=== PATIENT | female | born 1950 | race Caucasian/White ===

== ENCOUNTER 2021-11-10 03:06 | Inpatient (IN) | payer OTHER, MEDICAID ==
[~2021-11-10] VITALS: Ht 154.9 cm; Wt 60.3 kg
[2021-11-10 04:36] LABS: BG BASE EXCESS 1.9 mmol/L (-2.0-2.0); BG CARBOXYHEMOGLOBIN 0.3 % (0.5-1.5); BG DEOXYHEMOGLOBIN 3.1 % (0.0-5.0); BG HCO3 ACT 26.1 mmol/L (22.0-26.0); BG METHEMOGLOBIN 0.4 % (0.0-1.5); BG OXYGEN SATURATION 96.9 % (92.0-98.5); BG OXYHEMOGLOBIN 96.2 % (94.0-97.0); BG PCO2 39.6 mmHg (35.0-45.0); BG PH 7.437 (7.350-7.450); BG PO2 93.5 mmHg (75.0-100.0); BG SAMPLE SITE RIGHT RADIAL; BG TOTAL HEMOGLOBIN 11.7 g/dL (12.0-18.0); BG VENT MODE ROOM AIR
[2021-11-10 04:37] LABS: BASOPHILS % 0.6 % (0.0-2.0); EOSINOPHILS % 1.4 % (0.0-5.0); HEMOGLOBIN. 10.6 g/dL (12.0-16.0); LYMPHOCYTES % 30.8 % (20.0-50.0); MEAN CORPUSCULAR HEMOGLOBIN 30.1 pg (28.0-32.0); MEAN CORPUSCULAR VOLUME 90.4 fL (81.0-99.0); MEAN PLATELET VOLUME 6.9 fl (7.4-10.4); MONOCYTES % 9.4 % (2.0-8.0); NEUTROPHILS % 57.8 % (40.0-76.0); PLATELET 362 x1000/uL (130-400); RED BLOOD CELL COUNT 3.54 mill/uL (4.2-5.4); RED CELL DISTRIBUTION WIDTH 12.9 % (11.6-14.6)
[2021-11-10 04:42] LABS: CHLORIDE 105 mEq/L (98-107)
[2021-11-10 04:47] LABS: ETHANOL BLOOD < 10 mg/dL
[2021-11-10] MEDS ORDERED: METHYLPREDNISOLONE SOD SUCC 125 MG/2 ML VIAL IV STA (05:37)
[2021-11-10] MEDS ORDERED: ALBUTEROL (0.083%) 2.5MG/3ML NEB HHN STA (05:37)
[2021-11-10] MEDS ORDERED: IPRATROPIUM BROMIDE (0.02%) 0.5MG/2.5ML NEB HHN STA (05:37)
[2021-11-10 07:40] LABS: CLARITY URINE CLEAR (CLEAR); COLOR URINE YELLOW (YELLOW); KETONES URINE NEGATIVE (NEGATIVE); LEUKOCYTE ESTERASE URINE TRACE (NEGATIVE); NITRITE URINE NEGATIVE (NEGATIVE); OCCULT BLOOD URINE NEGATIVE (NEGATIVE); PH URINE 6.5 (4.5-8.0); PROTEIN URINE NEGATIVE (NEGATIVE); SPECIFIC GRAVITY URINE 1.004 (1.005-1.030); UROBILINOGEN URINE 0.2 E.U./dL (0.2-1.0)
[2021-11-10] MEDS ORDERED: IPRATROPIUM/ALBUTEROL 0.5-3(2.5)MG/3ML NEB NEB PRN (10:45)
[2021-11-10] MEDS ORDERED: CEFTRIAXONE 1 G PREMIX 50 ML IV SCH (10:45)
[2021-11-10] MEDS ORDERED: CLONIDINE 0.1MG TABLET PO PRN (10:45)
[2021-11-10] MEDS ORDERED: ACETAMINOPHEN 650MG SUPP PR PRN (10:45)
[2021-11-10] MEDS ORDERED: DIPHENHYDRAMINE 50MG/ML VIAL IV PRN (10:45)
[2021-11-10] MEDS ORDERED: MAGNESIUM/ALUMINUM HYDROXIDE/SIMETHICONE 30ML UDC PO PRN (10:45)
[2021-11-10] MEDS ORDERED: GUAIFENESIN 200MG/10ML SUGAR FREE UDC PO PRN (10:45)
[2021-11-10] MEDS ORDERED: ONDANSETRON HCL 4MG/2ML INJ IV PRN (10:45)
[2021-11-10] MEDS ORDERED: NA PHOS,M-B/NA PHOS,DI-BA ENEMA 118ML PR PRN (10:45)
[2021-11-10] MEDS ORDERED: CEFTRIAXONE 1,000 MG in DEXTROSE 5% WATER 50 ML IV SCH (12:00)
[2021-11-10] MEDS: IPRATROPIUM/ALBUTEROL 0.5-3(2.5)MG/3ML NEB NEB SCH ×2 (12:28→20:56)
[2021-11-10 12:58] LABS: *AMPHETAMINES SCREEN URINE NEGATIVE (NEGATIVE); *BARBITURATES SCREEN URINE NEGATIVE (NEGATIVE); *BENZODIAZEPINES SCREEN URINE NEGATIVE (NEGATIVE); *COCAINE SCREEN URINE NEGATIVE (NEGATIVE); CANNABINOID URINE SCREEN NEGATIVE (NEGATIVE); METHADONE URINE SCREEN NEGATIVE (NEGATIVE)
[2021-11-10 12:59] LABS: OPIATES URINE SCREEN NEGATIVE (NEGATIVE); PHENCYCLIDINE URINE SCREEN NEGATIVE (NEGATIVE)
[2021-11-10] MEDS ORDERED: AZITHROMYCIN 500 MG in DEXT 5% WATER 250 ML IV SCH (13:00)
[2021-11-10] MEDS ORDERED: NALOXONE HCL 0.4MG/ML VIAL IV PRN (13:15)
[2021-11-10 15:30] VITALS: BP 133/71
[2021-11-10] MEDS: METHYLPREDNISOLONE SOD SUCC 40 MG/ML VIAL IV SCH ×2 (15:45→21:49)
[2021-11-10] MEDS: ENOXAPARIN 40MG/0.4ML SYR SUBCUT SCH (15:46)
[2021-11-10 18:07] LABS: CREATINE KINASE 670 IU/L (26-192)
[2021-11-10 18:09] LABS: CREATINE KINASE MB FRACTION 12.4 ng/mL (0.5-3.6)
[2021-11-10 20:00] VITALS: BP 121/67
[2021-11-10] MEDS: BUDESONIDE 0.5MG/2ML NEB HHN SCH (20:58)
[2021-11-10] MEDS: FAMOTIDINE 20MG TABLET PO SCH (21:49)
[2021-11-11] VITALS: BP 115/55
[2021-11-11] MEDS: IPRATROPIUM/ALBUTEROL 0.5-3(2.5)MG/3ML NEB NEB SCH ×5 (02:15→21:21)
[2021-11-11 04:00] VITALS: BP 111/42
[2021-11-11] MEDS: METHYLPREDNISOLONE SOD SUCC 40 MG/ML VIAL IV SCH ×3 (05:58→21:20)
[2021-11-11 07:33] LABS: HEMATOCRIT. 32.4 % (36.0-48.0); HEMOGLOBIN. 10.9 g/dL (12.0-16.0); MEAN CORPUSCULAR HEMOGLOBIN 30.4 pg (28.0-32.0); MEAN CORPUSCULAR VOLUME 90.3 fL (81.0-99.0); MEAN PLATELET VOLUME 7.5 fl (7.4-10.4); MONOCYTES % 3.3 % (2.0-8.0); NEUTROPHILS % 86.7 % (40.0-76.0); PLATELET 371 x1000/uL (130-400); RED BLOOD CELL COUNT 3.58 mill/uL (4.2-5.4); RED CELL DISTRIBUTION WIDTH 13.1 % (11.6-14.6)
[2021-11-11 08:00] VITALS: BP 108/59
[2021-11-11 08:10] LABS: CHLORIDE 103 mEq/L (98-107)
[2021-11-11 08:24] LABS: CREATINE KINASE 488 IU/L (26-192)
[2021-11-11 08:28] LABS: CREATINE KINASE MB FRACTION 7.4 ng/mL (0.5-3.6)
[2021-11-11] MEDS: ENOXAPARIN 40MG/0.4ML SYR SUBCUT SCH (08:37)
[2021-11-11] MEDS ORDERED: PNEUMOCOCCAL 23-VAL P-SAC VAC 0.5 ML IM ONE (09:00)
[2021-11-11] MEDS ORDERED: INFLUENZA VACCINE 05/PF 0.5 ML SYRINGE IM ONE (09:00)
[2021-11-11] MEDS: BUDESONIDE 0.5MG/2ML NEB HHN SCH ×2 (09:50→21:21)
[2021-11-11] MEDS: CEFTRIAXONE 1,000 MG in DEXTROSE 5% WATER 50 ML IV SCH (11:22)
[2021-11-11 12:00] VITALS: BP 119/54
[2021-11-11] MEDS: AZITHROMYCIN 500 MG in DEXT 5% WATER 250 ML IV SCH (13:07)
[2021-11-11] MEDS: LORAZEPAM 0.5MG TABLET PO PRN ×2 (16:10→21:20)
[2021-11-11 20:00] VITALS: BP 111/60
[2021-11-11] MEDS: FAMOTIDINE 20MG TABLET PO SCH (21:20)
[2021-11-11 23:36] VITALS: BP 100/51
[2021-11-12] MEDS: IPRATROPIUM/ALBUTEROL 0.5-3(2.5)MG/3ML NEB NEB SCH ×3 (01:10→20:57)
[2021-11-12 04:00] VITALS: BP 111/58
[2021-11-12] MEDS: METHYLPREDNISOLONE SOD SUCC 40 MG/ML VIAL IV SCH ×2 (05:24→14:31)
[2021-11-12] MEDS: BUDESONIDE 0.5MG/2ML NEB HHN SCH ×2 (07:34→20:57)
[2021-11-12 08:00] VITALS: BP 129/56
[2021-11-12] MEDS: ENOXAPARIN 40MG/0.4ML SYR SUBCUT SCH (09:02)
[2021-11-12] MEDS: CEFTRIAXONE 1,000 MG in DEXTROSE 5% WATER 50 ML IV SCH (10:49)
[2021-11-12 12:00] VITALS: BP 140/65
[2021-11-12] MEDS ORDERED: DEXTROSE 50% WATER 50ML SYRINGE IV PRN (12:00)
[2021-11-12] MEDS: BLOOD SUGAR DIAGNOSTIC STRIP TEST SCH ×3 (12:18→21:28)
[2021-11-12] MEDS: AZITHROMYCIN 500 MG in DEXT 5% WATER 250 ML IV SCH (12:48)
[2021-11-12] MEDS ORDERED: INSULIN LISPRO 100 UNITS/ML SUBCUT SCH ×2 (12:50→14:45)
[2021-11-12 13:09] LABS: HEMATOCRIT. 34.2 % (36.0-48.0); MEAN CORPUSCULAR HEMOGLOBIN 30.6 pg (28.0-32.0); MEAN CORPUSCULAR VOLUME 94.7 fL (81.0-99.0); MEAN PLATELET VOLUME 7.8 fl (7.4-10.4); PLATELET 400 x1000/uL (130-400); RED BLOOD CELL COUNT 3.61 mill/uL (4.2-5.4); RED CELL DISTRIBUTION WIDTH 13.8 % (11.6-14.6)
[2021-11-12] MEDS ORDERED: INSULIN GLARGINE UD 100 UNITS/ML SYR SUBCUT SCH ×2 (14:45→16:00)
[2021-11-12] MEDS: HYDROCODONE/ACETAMINOPHEN 5/325MG TABLET PO PRN (15:49)
[2021-11-12 16:00] VITALS: BP 146/69
[2021-11-12] MEDS: INSULIN LISPRO 100 UNITS/ML SUBCUT SCH ×2 (18:08→21:30)
[2021-11-12 20:00] VITALS: BP 112/53
[2021-11-12 20:02] LABS: PLATELET ESTIMATE NORMAL
[2021-11-12] MEDS: FAMOTIDINE 20MG TABLET PO SCH (21:28)
[2021-11-12] MEDS: INSULIN GLARGINE UD 100 UNITS/ML SYR SUBCUT SCH (21:46)
[2021-11-12 23:55] VITALS: BP 128/60
[2021-11-13] MEDS ORDERED: METHYLPREDNISOLONE SOD SUCC 40 MG/ML VIAL IV SCH (02:00)
[2021-11-13] MEDS: IPRATROPIUM/ALBUTEROL 0.5-3(2.5)MG/3ML NEB NEB SCH ×4 (02:13→21:45)
[2021-11-13 04:00] VITALS: BP 121/58
[2021-11-13] MEDS: BLOOD SUGAR DIAGNOSTIC STRIP TEST SCH ×4 (06:30→21:14)
[2021-11-13] MEDS: INSULIN LISPRO 100 UNITS/ML SUBCUT SCH ×4 (06:30→21:26)
[2021-11-13 08:00] VITALS: BP 141/65
[2021-11-13] MEDS: ENOXAPARIN 40MG/0.4ML SYR SUBCUT SCH (09:00)
[2021-11-13] MEDS: BUDESONIDE 0.5MG/2ML NEB HHN SCH (09:39)
[2021-11-13] MEDS: INSULIN GLARGINE UD 100 UNITS/ML SYR SUBCUT SCH ×4 (10:00→22:03)
[2021-11-13] MEDS: CEFTRIAXONE 1,000 MG in DEXTROSE 5% WATER 50 ML IV SCH (11:09)
[2021-11-13] MEDS: HYDROCODONE/ACETAMINOPHEN 5/325MG TABLET PO PRN (11:37)
[2021-11-13 12:00] VITALS: BP 156/84
[2021-11-13] MEDS: AZITHROMYCIN 500 MG in DEXT 5% WATER 250 ML IV SCH (12:59)
[2021-11-13] MEDS ORDERED: INSULIN LISPRO 100 UNITS/ML SUBCUT SCH (13:00)
[2021-11-13] MEDS: GABAPENTIN 100MG CAPSULE PO SCH ×2 (15:00→21:24)
[2021-11-13 16:00] VITALS: BP 108/72
[2021-11-13] MEDS: ACETAMINOPHEN 325MG TABLET PO PRN ×2 (16:18→21:25)
[2021-11-13 20:00] VITALS: BP 130/74
[2021-11-13] MEDS: FAMOTIDINE 20MG TABLET PO SCH (21:24)
[2021-11-13] MEDS: LORAZEPAM 0.5MG TABLET PO PRN (22:34)
[2021-11-13 23:07] LABS: BASOPHILS % 0.4 % (0.0-2.0); EOSINOPHILS % 0.1 % (0.0-5.0); HEMOGLOBIN. 11.9 g/dL (12.0-16.0); LYMPHOCYTES % 21.6 % (20.0-50.0); MEAN CORPUSCULAR HEMOGLOBIN 30.7 pg (28.0-32.0); MEAN CORPUSCULAR VOLUME 90.2 fL (81.0-99.0); MEAN PLATELET VOLUME 7.2 fl (7.4-10.4); MONOCYTES % 7.5 % (2.0-8.0); NEUTROPHILS % 70.4 % (40.0-76.0); PLATELET 409 x1000/uL (130-400); RED BLOOD CELL COUNT 3.88 mill/uL (4.2-5.4); RED CELL DISTRIBUTION WIDTH 13.3 % (11.6-14.6)
[2021-11-14] VITALS: BP 154/67
[2021-11-14 04:00] VITALS: BP 144/71
[2021-11-14] MEDS: BLOOD SUGAR DIAGNOSTIC STRIP TEST SCH ×4 (06:34→20:43)
[2021-11-14] MEDS: INSULIN LISPRO 100 UNITS/ML SUBCUT SCH ×4 (06:53→21:42)
[2021-11-14] MEDS: GABAPENTIN 100MG CAPSULE PO SCH ×3 (06:53→21:34)
[2021-11-14 08:00] VITALS: BP 134/58
[2021-11-14] MEDS: IPRATROPIUM/ALBUTEROL 0.5-3(2.5)MG/3ML NEB NEB SCH ×4 (09:27→20:54)
[2021-11-14] MEDS: METHYLPREDNISOLONE SOD SUCC 40 MG/ML VIAL IV SCH (09:50)
[2021-11-14] MEDS: ENOXAPARIN 40MG/0.4ML SYR SUBCUT SCH (09:51)
[2021-11-14] MEDS: INSULIN GLARGINE UD 100 UNITS/ML SYR SUBCUT SCH ×2 (09:59→23:08)
[2021-11-14] MEDS: CEFTRIAXONE 1,000 MG in DEXTROSE 5% WATER 50 ML IV SCH (11:14)
[2021-11-14 12:00] VITALS: BP 137/56
[2021-11-14] MEDS: AZITHROMYCIN 500 MG in DEXT 5% WATER 250 ML IV SCH (12:20)
[2021-11-14] MEDS: SODIUM CHLORIDE 0.45% 1,000 ML IV SCH (12:38)
[2021-11-14 16:00] VITALS: BP 141/72
[2021-11-14 20:00] VITALS: BP 157/98
[2021-11-14] MEDS: ACETAMINOPHEN 325MG TABLET PO PRN (20:20)
[2021-11-14] MEDS: FAMOTIDINE 20MG TABLET PO SCH (20:20)
[2021-11-14] MEDS: LORAZEPAM 0.5MG TABLET PO PRN (21:34)
[2021-11-15] VITALS: BP 155/74
[2021-11-15] MEDS: SODIUM CHLORIDE 0.45% 1,000 ML IV SCH (00:35)
[2021-11-15 04:00] VITALS: BP 102/60
[2021-11-15] MEDS: GABAPENTIN 100MG CAPSULE PO SCH ×3 (05:58→21:15)
[2021-11-15] MEDS: INSULIN LISPRO 100 UNITS/ML SUBCUT SCH ×4 (07:29→21:59)
[2021-11-15] MEDS: BLOOD SUGAR DIAGNOSTIC STRIP TEST SCH ×4 (07:29→21:16)
[2021-11-15 08:00] VITALS: BP 124/55
[2021-11-15] MEDS: METHYLPREDNISOLONE SOD SUCC 40 MG/ML VIAL IV SCH (09:00)
[2021-11-15] MEDS: ENOXAPARIN 30MG/0.3ML SYR SUBCUT SCH (09:48)
[2021-11-15] MEDS: INSULIN GLARGINE UD 100 UNITS/ML SYR SUBCUT SCH ×2 (09:52→22:00)
[2021-11-15] MEDS: CEFTRIAXONE 1,000 MG in DEXTROSE 5% WATER 50 ML IV SCH (11:00)
[2021-11-15 12:00] VITALS: BP 108/58
[2021-11-15 15:29] LABS: BASOPHILS % 0.5 % (0.0-2.0); EOSINOPHILS % 1.1 % (0.0-5.0); HEMATOCRIT. 36.1 % (36.0-48.0); HEMOGLOBIN. 12.3 g/dL (12.0-16.0); LYMPHOCYTES % 28.5 % (20.0-50.0); MEAN CORPUSCULAR HEMOGLOBIN 30.6 pg (28.0-32.0); MEAN CORPUSCULAR VOLUME 89.8 fL (81.0-99.0); MEAN PLATELET VOLUME 7.5 fl (7.4-10.4); MONOCYTES % 5.9 % (2.0-8.0); PLATELET 368 x1000/uL (130-400); RED BLOOD CELL COUNT 4.02 mill/uL (4.2-5.4); RED CELL DISTRIBUTION WIDTH 13.2 % (11.6-14.6)
[2021-11-15 16:00] VITALS: BP 104/57
[2021-11-15] MEDS: IPRATROPIUM/ALBUTEROL 0.5-3(2.5)MG/3ML NEB NEB SCH ×3 (16:44→22:20)
[2021-11-15 20:00] VITALS: BP 134/63
[2021-11-15] MEDS: ACETAMINOPHEN 325MG TABLET PO PRN (21:15)
[2021-11-15] MEDS: FAMOTIDINE 20MG TABLET PO SCH (21:15)
[2021-11-16] VITALS: BP 119/54
[2021-11-16] MEDS: IPRATROPIUM/ALBUTEROL 0.5-3(2.5)MG/3ML NEB NEB SCH ×4 (02:14→20:46)
[2021-11-16 04:00] VITALS: BP 121/56
[2021-11-16] MEDS: GABAPENTIN 100MG CAPSULE PO SCH ×3 (05:55→20:36)
[2021-11-16] MEDS: ACETAMINOPHEN 325MG TABLET PO PRN ×2 (05:55→18:19)
[2021-11-16] MEDS: BLOOD SUGAR DIAGNOSTIC STRIP TEST SCH ×4 (07:20→20:31)
[2021-11-16] MEDS: INSULIN LISPRO 100 UNITS/ML SUBCUT SCH ×4 (07:50→21:26)
[2021-11-16 08:00] VITALS: BP 125/60
[2021-11-16] MEDS: PREDNISONE 20MG TABLET PO SCH (08:44)
[2021-11-16] MEDS: ENOXAPARIN 30MG/0.3ML SYR SUBCUT SCH ×2 (08:45→08:49)
[2021-11-16] MEDS: INSULIN GLARGINE UD 100 UNITS/ML SYR SUBCUT SCH ×2 (10:00→21:33)
[2021-11-16 12:00] VITALS: BP 116/65
[2021-11-16 16:00] VITALS: BP 117/53
[2021-11-16 20:00] VITALS: BP 127/60
[2021-11-16] MEDS: FAMOTIDINE 20MG TABLET PO SCH (21:39)
[2021-11-17] VITALS: BP 134/64
[2021-11-17] MEDS: ACETAMINOPHEN 325MG TABLET PO PRN (00:20)
[2021-11-17] MEDS: IPRATROPIUM/ALBUTEROL 0.5-3(2.5)MG/3ML NEB NEB SCH ×2 (02:42→08:38)
[2021-11-17] MEDS ORDERED: QUETIAPINE FUMARATE 50MG TABLET PO NR (03:30)
[2021-11-17 04:00] VITALS: BP 120/46
[2021-11-17] MEDS: GABAPENTIN 100MG CAPSULE PO SCH ×3 (05:50→21:40)
[2021-11-17] MEDS: BLOOD SUGAR DIAGNOSTIC STRIP TEST SCH ×4 (06:32→20:08)
[2021-11-17] MEDS: INSULIN LISPRO 100 UNITS/ML SUBCUT SCH ×4 (07:50→20:19)
[2021-11-17 08:00] VITALS: BP 157/76
[2021-11-17] MEDS: ENOXAPARIN 30MG/0.3ML SYR SUBCUT SCH ×2 (09:27→09:36)
[2021-11-17] MEDS: PREDNISONE 20MG TABLET PO SCH (09:28)
[2021-11-17] MEDS: INSULIN GLARGINE UD 100 UNITS/ML SYR SUBCUT SCH ×2 (11:59→21:47)
[2021-11-17 12:00] VITALS: BP 120/59
[2021-11-17] MEDS ORDERED: INSULIN LISPRO 100 UNITS/ML SUBCUT NR ×2 (14:45→18:00)
[2021-11-17 16:00] VITALS: BP 127/58
[2021-11-17 20:00] VITALS: BP 141/71
[2021-11-17] MEDS: FAMOTIDINE 20MG TABLET PO SCH (20:09)
[2021-11-17] MEDS: QUETIAPINE FUMARATE 50MG TABLET PO SCH (20:10)
[2021-11-18] VITALS: BP 113/57
[2021-11-18] MEDS: LORAZEPAM 1MG TABLET PO PRN (01:42)
[2021-11-18] MEDS: GABAPENTIN 100MG CAPSULE PO SCH ×3 (06:44→21:07)
[2021-11-18] MEDS: BLOOD SUGAR DIAGNOSTIC STRIP TEST SCH ×4 (07:20→21:18)
[2021-11-18] MEDS: INSULIN LISPRO 100 UNITS/ML SUBCUT SCH ×4 (07:50→21:30)
[2021-11-18 08:00] VITALS: BP 154/85
[2021-11-18] MEDS: IPRATROPIUM/ALBUTEROL 0.5-3(2.5)MG/3ML NEB NEB SCH ×2 (08:10→14:48)
[2021-11-18] MEDS: ENOXAPARIN 30MG/0.3ML SYR SUBCUT SCH (09:26)
[2021-11-18 12:00] VITALS: BP 119/56
[2021-11-18] MEDS ORDERED: INSULIN GLARGINE UD 100 UNITS/ML SYR SUBCUT NR (13:00)
[2021-11-18] MEDS: INSULIN GLARGINE UD 100 UNITS/ML SYR SUBCUT SCH ×2 (13:29→22:42)
[2021-11-18 20:00] VITALS: BP 130/52
[2021-11-18] MEDS: ACETAMINOPHEN 325MG TABLET PO PRN (21:03)
[2021-11-18] MEDS: FAMOTIDINE 20MG TABLET PO SCH (21:08)
[2021-11-18] MEDS: QUETIAPINE FUMARATE 50MG TABLET PO SCH (21:09)
[2021-11-18] MEDS ORDERED: INSULIN GLARGINE UD 100 UNITS/ML SYR SUBCUT SCH (22:00)
[2021-11-18] MEDS: DOCUSATE SODIUM 100MG CAPSULE PO PRN (23:55)
[2021-11-19] VITALS: BP 124/49
[2021-11-19 04:00] VITALS: BP 119/64
[2021-11-19] MEDS: GABAPENTIN 100MG CAPSULE PO SCH ×3 (06:09→21:31)
[2021-11-19 08:00] VITALS: BP 130/60
[2021-11-19] MEDS: BLOOD SUGAR DIAGNOSTIC STRIP TEST SCH ×4 (08:15→21:29)
[2021-11-19] MEDS: ENOXAPARIN 30MG/0.3ML SYR SUBCUT SCH (09:45)
[2021-11-19] MEDS: INSULIN LISPRO 100 UNITS/ML SUBCUT SCH ×4 (09:47→21:39)
[2021-11-19] MEDS: INSULIN GLARGINE UD 100 UNITS/ML SYR SUBCUT SCH (09:48)
[2021-11-19 12:00] VITALS: BP 141/63
[2021-11-19] MEDS: ACETAMINOPHEN 325MG TABLET PO PRN ×2 (12:40→21:35)
[2021-11-19] MEDS: IPRATROPIUM/ALBUTEROL 0.5-3(2.5)MG/3ML NEB NEB SCH ×2 (15:38→21:22)
[2021-11-19 16:00] VITALS: BP 126/67
[2021-11-19] MEDS: LORAZEPAM 1MG TABLET PO PRN ×2 (16:13→23:13)
[2021-11-19 20:00] VITALS: BP 105/49
[2021-11-19] MEDS: FAMOTIDINE 20MG TABLET PO SCH (21:31)
[2021-11-19] MEDS: QUETIAPINE FUMARATE 50MG TABLET PO SCH (21:31)
[2021-11-19] MEDS ORDERED: INSULIN GLARGINE UD 100 UNITS/ML SYR SUBCUT SCH (22:00)
[2021-11-20] VITALS: BP 117/53
[2021-11-20] MEDS: IPRATROPIUM/ALBUTEROL 0.5-3(2.5)MG/3ML NEB NEB SCH ×4 (01:24→20:42)
[2021-11-20 04:00] VITALS: BP 110/63
[2021-11-20] MEDS: ACETAMINOPHEN 325MG TABLET PO PRN ×3 (05:48→21:16)
[2021-11-20] MEDS: GABAPENTIN 100MG CAPSULE PO SCH ×3 (05:48→21:04)
[2021-11-20] MEDS: BLOOD SUGAR DIAGNOSTIC STRIP TEST SCH ×4 (05:54→21:13)
[2021-11-20] MEDS: INSULIN LISPRO 100 UNITS/ML SUBCUT SCH ×5 (05:54→21:20)
[2021-11-20 08:00] VITALS: BP 103/57
[2021-11-20] MEDS: ENOXAPARIN 30MG/0.3ML SYR SUBCUT SCH (09:00)
[2021-11-20] MEDS ORDERED: PREDNISONE 20MG TABLET PO SCH (09:00)
[2021-11-20 11:58] LABS: HEMATOCRIT 38.3 % (36.0-48.0); HEMOGLOBIN 12.7 g/dL (12.0-16.0); MEAN CORPUSCULAR HEMOGLOBIN 30.3 pg (28.0-32.0); MEAN CORPUSCULAR VOLUME 91.7 fL (81.0-99.0); PLATELET 301 x1000/uL (130-400); RED BLOOD CELL COUNT 4.18 mill/uL (4.2-5.4); RED CELL DISTRIBUTION WIDTH 13.3 % (11.6-14.6)
[2021-11-20 12:00] VITALS: BP 124/64
[2021-11-20] MEDS: DOCUSATE SODIUM 100MG CAPSULE PO PRN (14:21)
[2021-11-20] MEDS: LORAZEPAM 1MG TABLET PO PRN (14:21)
[2021-11-20 16:00] VITALS: BP 168/50
[2021-11-20 20:00] VITALS: BP 139/60
[2021-11-20] MEDS: QUETIAPINE FUMARATE 50MG TABLET PO SCH (21:04)
[2021-11-20] MEDS: FAMOTIDINE 20MG TABLET PO SCH (21:04)
[2021-11-20] MEDS: INSULIN GLARGINE UD 100 UNITS/ML SYR SUBCUT SCH (21:23)
[2021-11-21] VITALS: BP 100/42
[2021-11-21] MEDS: IPRATROPIUM/ALBUTEROL 0.5-3(2.5)MG/3ML NEB NEB SCH ×5 (01:13→21:23)
[2021-11-21 04:00] VITALS: BP 150/77
[2021-11-21] MEDS: GABAPENTIN 100MG CAPSULE PO SCH ×3 (05:45→21:29)
[2021-11-21] MEDS: ACETAMINOPHEN 325MG TABLET PO PRN ×3 (05:46→21:29)
[2021-11-21] MEDS: BLOOD SUGAR DIAGNOSTIC STRIP TEST SCH ×4 (05:51→21:32)
[2021-11-21 08:00] VITALS: BP 113/48
[2021-11-21] MEDS: ENOXAPARIN 40MG/0.4ML SYR SUBCUT SCH (09:19)
[2021-11-21] MEDS: INSULIN LISPRO 100 UNITS/ML SUBCUT SCH ×4 (09:21→21:37)
[2021-11-21] MEDS: INSULIN GLARGINE UD 100 UNITS/ML SYR SUBCUT SCH ×2 (09:34→21:37)
[2021-11-21 12:00] VITALS: BP 119/56
[2021-11-21 16:00] VITALS: BP 117/76
[2021-11-21 17:54] LABS: HEMATOCRIT. 34.8 % (36.0-48.0); HEMOGLOBIN. 11.8 g/dL (12.0-16.0); MEAN CORPUSCULAR HEMOGLOBIN 30.6 pg (28.0-32.0); MEAN CORPUSCULAR VOLUME 90.1 fL (81.0-99.0); MEAN PLATELET VOLUME 7.2 fl (7.4-10.4); PLATELET 298 x1000/uL (130-400); RED BLOOD CELL COUNT 3.86 mill/uL (4.2-5.4); RED CELL DISTRIBUTION WIDTH 13.1 % (11.6-14.6)
[2021-11-21 18:17] LABS: PLATELET ESTIMATE NORMAL
[2021-11-21 20:00] VITALS: BP 145/66
[2021-11-21] MEDS: QUETIAPINE FUMARATE 50MG TABLET PO SCH (21:29)
[2021-11-21] MEDS: FAMOTIDINE 20MG TABLET PO SCH (21:29)
[2021-11-21] MEDS: LORAZEPAM 1MG TABLET PO PRN (23:28)
[2021-11-22] VITALS: BP 141/60
[2021-11-22] MEDS: IPRATROPIUM/ALBUTEROL 0.5-3(2.5)MG/3ML NEB NEB SCH ×4 (01:12→20:59)
[2021-11-22] MEDS: TEMAZEPAM 15MG CAPSULE PO PRN (03:01)
[2021-11-22 04:00] VITALS: BP 124/56
[2021-11-22] MEDS: GABAPENTIN 100MG CAPSULE PO SCH ×3 (05:45→20:54)
[2021-11-22] MEDS: ACETAMINOPHEN 325MG TABLET PO PRN ×2 (05:46→20:58)
[2021-11-22] MEDS: BLOOD SUGAR DIAGNOSTIC STRIP TEST SCH ×4 (05:49→21:02)
[2021-11-22] MEDS: INSULIN LISPRO 100 UNITS/ML SUBCUT SCH ×4 (05:49→21:00)
[2021-11-22] MEDS: ENOXAPARIN 40MG/0.4ML SYR SUBCUT SCH (09:14)
[2021-11-22] MEDS: INSULIN GLARGINE UD 100 UNITS/ML SYR SUBCUT SCH ×2 (09:18→21:03)
[2021-11-22 12:00] VITALS: BP 96/40
[2021-11-22] MEDS ORDERED: FLUT1AER INH (13:06)
[2021-11-22] MEDS ORDERED: ALBU90AE INH (13:06)
[2021-11-22 20:00] VITALS: BP 146/75
[2021-11-22] MEDS: QUETIAPINE FUMARATE 50MG TABLET PO SCH (20:54)
[2021-11-22] MEDS: FAMOTIDINE 20MG TABLET PO SCH (20:54)
[2021-11-23] VITALS: BP 116/64
[2021-11-23] MEDS: IPRATROPIUM/ALBUTEROL 0.5-3(2.5)MG/3ML NEB NEB SCH ×4 (02:20→21:50)
[2021-11-23 04:00] VITALS: BP 105/61
[2021-11-23] MEDS: GABAPENTIN 100MG CAPSULE PO SCH ×3 (05:36→20:29)
[2021-11-23] MEDS: ACETAMINOPHEN 325MG TABLET PO PRN ×2 (05:36→13:23)
[2021-11-23] MEDS: INSULIN LISPRO 100 UNITS/ML SUBCUT SCH ×4 (05:39→21:46)
[2021-11-23] MEDS: BLOOD SUGAR DIAGNOSTIC STRIP TEST SCH ×4 (05:39→21:00)
[2021-11-23 08:00] VITALS: BP 116/47
[2021-11-23] MEDS: ENOXAPARIN 40MG/0.4ML SYR SUBCUT SCH (09:00)
[2021-11-23] MEDS: INSULIN GLARGINE UD 100 UNITS/ML SYR SUBCUT SCH ×2 (09:07→21:47)
[2021-11-23 12:00] VITALS: BP 143/73
[2021-11-23 16:00] VITALS: BP 142/68
[2021-11-23 20:00] VITALS: BP 152/76
[2021-11-23] MEDS: FAMOTIDINE 20MG TABLET PO SCH (20:29)
[2021-11-23] MEDS: TEMAZEPAM 15MG CAPSULE PO PRN (20:29)
[2021-11-23] MEDS: QUETIAPINE FUMARATE 50MG TABLET PO SCH (20:29)
[2021-11-24] VITALS: BP 139/69
[2021-11-24 04:00] VITALS: BP 114/47
[2021-11-24] MEDS: GABAPENTIN 100MG CAPSULE PO SCH ×3 (06:23→19:56)
[2021-11-24] MEDS: BLOOD SUGAR DIAGNOSTIC STRIP TEST SCH ×4 (07:20→20:32)
[2021-11-24] MEDS: IPRATROPIUM/ALBUTEROL 0.5-3(2.5)MG/3ML NEB NEB SCH ×2 (07:54→14:11)
[2021-11-24 08:00] VITALS: BP 100/5
[2021-11-24] MEDS ORDERED: PREDNISONE 10MG TABLET PO SCH (09:00)
[2021-11-24] MEDS: ENOXAPARIN 40MG/0.4ML SYR SUBCUT SCH (10:25)
[2021-11-24] MEDS: INSULIN GLARGINE UD 100 UNITS/ML SYR SUBCUT SCH ×2 (10:30→20:32)
[2021-11-24] MEDS: INSULIN LISPRO 100 UNITS/ML SUBCUT SCH ×4 (10:33→20:33)
[2021-11-24 12:00] VITALS: BP 136/65
[2021-11-24] MEDS: ACETAMINOPHEN 325MG TABLET PO PRN (15:31)
[2021-11-24 16:00] VITALS: BP 127/69
[2021-11-24] MEDS: TEMAZEPAM 15MG CAPSULE PO PRN (19:52)
[2021-11-24] MEDS: QUETIAPINE FUMARATE 50MG TABLET PO SCH (19:52)
[2021-11-24] MEDS: FAMOTIDINE 20MG TABLET PO SCH (19:52)
[2021-11-24 20:00] VITALS: BP 162/75
[2021-11-25] VITALS: BP 128/54
[2021-11-25 04:00] VITALS: BP 147/97
[2021-11-25] MEDS: GABAPENTIN 100MG CAPSULE PO SCH ×3 (06:05→22:05)
[2021-11-25] MEDS: INSULIN LISPRO 100 UNITS/ML SUBCUT SCH ×4 (07:50→22:04)
[2021-11-25 08:00] VITALS: BP 133/58
[2021-11-25] MEDS: BLOOD SUGAR DIAGNOSTIC STRIP TEST SCH ×4 (08:00→21:00)
[2021-11-25] MEDS: IPRATROPIUM/ALBUTEROL 0.5-3(2.5)MG/3ML NEB NEB SCH ×3 (08:20→22:06)
[2021-11-25] MEDS: ENOXAPARIN 40MG/0.4ML SYR SUBCUT SCH (08:49)
[2021-11-25] MEDS: INSULIN GLARGINE UD 100 UNITS/ML SYR SUBCUT SCH ×3 (10:00→22:04)
[2021-11-25 12:00] VITALS: BP 129/67
[2021-11-25 16:00] VITALS: BP 128/55
[2021-11-25] MEDS: ACETAMINOPHEN 325MG TABLET PO PRN ×2 (16:20→23:03)
[2021-11-25 20:00] VITALS: BP 126/72
[2021-11-25] MEDS: FAMOTIDINE 20MG TABLET PO SCH (22:05)
[2021-11-25] MEDS: QUETIAPINE FUMARATE 50MG TABLET PO SCH (22:05)
[2021-11-26] VITALS: BP 115/54
[2021-11-26] MEDS: IPRATROPIUM/ALBUTEROL 0.5-3(2.5)MG/3ML NEB NEB SCH ×4 (02:03→21:20)
[2021-11-26 04:00] VITALS: BP 136/55
[2021-11-26] MEDS: GABAPENTIN 100MG CAPSULE PO SCH ×3 (06:31→22:23)
[2021-11-26 08:00] VITALS: BP 122/55
[2021-11-26] MEDS: ENOXAPARIN 40MG/0.4ML SYR SUBCUT SCH (08:21)
[2021-11-26] MEDS: INSULIN LISPRO 100 UNITS/ML SUBCUT SCH ×4 (08:23→22:21)
[2021-11-26] MEDS: INSULIN GLARGINE UD 100 UNITS/ML SYR SUBCUT SCH ×2 (09:55→22:00)
[2021-11-26 12:00] VITALS: BP 110/50
[2021-11-26 16:00] VITALS: BP 132/64
[2021-11-26 20:00] VITALS: BP 123/58
[2021-11-26] MEDS: FAMOTIDINE 20MG TABLET PO SCH (20:20)
[2021-11-26] MEDS: QUETIAPINE FUMARATE 50MG TABLET PO SCH (20:20)
[2021-11-26] MEDS: ACETAMINOPHEN 325MG TABLET PO PRN (20:22)
[2021-11-27] VITALS: BP 119/50
[2021-11-27] MEDS: IPRATROPIUM/ALBUTEROL 0.5-3(2.5)MG/3ML NEB NEB SCH ×4 (01:27→21:22)
[2021-11-27 04:00] VITALS: BP 102/58
[2021-11-27] MEDS: GABAPENTIN 100MG CAPSULE PO SCH ×3 (06:25→21:52)
[2021-11-27] MEDS: BLOOD SUGAR DIAGNOSTIC STRIP TEST SCH ×3 (06:40→21:00)
[2021-11-27] MEDS: INSULIN LISPRO 100 UNITS/ML SUBCUT SCH ×4 (07:50→22:19)
[2021-11-27 07:51] VITALS: BP 108/40
[2021-11-27] MEDS: ENOXAPARIN 40MG/0.4ML SYR SUBCUT SCH (08:43)
[2021-11-27] MEDS: INSULIN GLARGINE UD 100 UNITS/ML SYR SUBCUT SCH ×2 (10:54→22:17)
[2021-11-27 12:00] VITALS: BP 118/48
[2021-11-27 16:00] VITALS: BP 143/69
[2021-11-27 20:00] VITALS: BP 133/59
[2021-11-27 20:10] LABS: BASOPHILS % 0.6 % (0.0-2.0); EOSINOPHILS % 2.1 % (0.0-5.0); HEMATOCRIT. 36.9 % (36.0-48.0); HEMOGLOBIN. 12.7 g/dL (12.0-16.0); LYMPHOCYTES % 27.3 % (20.0-50.0); MEAN CORPUSCULAR VOLUME 90.2 fL (81.0-99.0); MEAN PLATELET VOLUME 7.2 fl (7.4-10.4); MONOCYTES % 7.6 % (2.0-8.0); NEUTROPHILS % 62.4 % (40.0-76.0); PLATELET 293 x1000/uL (130-400); RED CELL DISTRIBUTION WIDTH 13.5 % (11.6-14.6)
[2021-11-27] MEDS: FAMOTIDINE 20MG TABLET PO SCH (21:52)
[2021-11-27] MEDS: QUETIAPINE FUMARATE 50MG TABLET PO SCH (21:52)
[2021-11-27] MEDS: ACETAMINOPHEN 325MG TABLET PO PRN (22:22)
[2021-11-28] MEDS: IPRATROPIUM/ALBUTEROL 0.5-3(2.5)MG/3ML NEB NEB SCH ×4 (01:04→21:11)
[2021-11-28 04:00] VITALS: BP 131/54
[2021-11-28] MEDS: GABAPENTIN 100MG CAPSULE PO SCH ×3 (05:21→21:06)
[2021-11-28] MEDS: BLOOD SUGAR DIAGNOSTIC STRIP TEST SCH ×4 (07:02→21:00)
[2021-11-28] MEDS: INSULIN LISPRO 100 UNITS/ML SUBCUT SCH ×4 (07:50→21:37)
[2021-11-28 08:00] VITALS: BP 96/49
[2021-11-28] MEDS: ENOXAPARIN 40MG/0.4ML SYR SUBCUT SCH (10:33)
[2021-11-28] MEDS: INSULIN GLARGINE UD 100 UNITS/ML SYR SUBCUT SCH ×2 (10:36→21:23)
[2021-11-28 20:00] VITALS: BP 154/81
[2021-11-28] MEDS: FAMOTIDINE 20MG TABLET PO SCH (21:06)
[2021-11-28] MEDS: QUETIAPINE FUMARATE 50MG TABLET PO SCH (21:06)
[2021-11-28] MEDS: ACETAMINOPHEN 325MG TABLET PO PRN (21:19)
[2021-11-29 04:00] VITALS: BP 110/58
[2021-11-29] MEDS: GABAPENTIN 100MG CAPSULE PO SCH ×2 (06:27→06:33)
[2021-11-29] MEDS: BLOOD SUGAR DIAGNOSTIC STRIP TEST SCH ×2 (06:27→12:20)
[2021-11-29] MEDS: INSULIN LISPRO 100 UNITS/ML SUBCUT SCH ×2 (07:50→12:44)
[2021-11-29 08:00] VITALS: BP 116/48
[2021-11-29] MEDS: ENOXAPARIN 40MG/0.4ML SYR SUBCUT SCH ×2 (09:00→09:05)
[2021-11-29] MEDS: IPRATROPIUM/ALBUTEROL 0.5-3(2.5)MG/3ML NEB NEB SCH (09:33)
[2021-11-29] MEDS: INSULIN GLARGINE UD 100 UNITS/ML SYR SUBCUT SCH (10:00)
[2021-11-29 11:53] VITALS: BP 139/53
[2021-11-29 12:00] VITALS: BP 139/53
== END 2021-11-29 14:12 | disposition home or self-care (01) | DRG 193 ==
LOC: ER 03:46 → MICUSO 08:00 → 6WST 13:02 → 6EST 11-16 11:20
PROVIDERS: ADMIT Internal Medicine; ATTEND Internal Medicine
DX: J18.9 Pneumonia, unspecified organism (principal); I50.33 Acute on chronic diastolic (congestive) heart failure; J45.901 Unspecified asthma with (acute) exacerbation; J44.1 Chronic obstructive pulmonary disease with (acute) exacerbation; N39.0 Urinary tract infection, site not specified; I31.3 Pericardial effusion (noninflammatory); N17.9 Acute kidney failure, unspecified; J44.0 Chronic obstructive pulmonary disease with (acute) lower respiratory infection; R65.10 Systemic inflammatory response syndrome (SIRS) of non-infectious origin without acute organ dysfunction; I11.0 Hypertensive heart disease with heart failure; D64.9 Anemia, unspecified; F41.9 Anxiety disorder, unspecified; Z20.822 Contact with and (suspected) exposure to COVID-19; E11.65 Type 2 diabetes mellitus with hyperglycemia; M19.90 Unspecified osteoarthritis, unspecified site; R74.01 Elevation of levels of liver transaminase levels; I27.20 Pulmonary hypertension, unspecified; E11.42 Type 2 diabetes mellitus with diabetic polyneuropathy; R06.03 Acute respiratory distress; T38.0X5A Adverse effect of glucocorticoids and synthetic analogues, initial encounter; Y92.89 Other specified places as the place of occurrence of the external cause; Z79.51 Long term (current) use of inhaled steroids; Z79.899 Other long term (current) drug therapy
CPT/HCPCS: 36415; 36600; 71045; 80048; 80053; 80305; 80320; 81003; 82375; 82550; 82553; 82805; 82962; 83036; 83605; 83880; 84443; 84484; 85025; 85027; 87426; 93005; 93306; 93970; 94640; 97110; 97116; 97161; 97164; 97166; 97530; 97535; 99285; J0456; J0696; J1650; J1815; J2920; J2930; J7040; J7060; J7512; J7626; G0480